=== PATIENT | male | born 2000 | race Caucasian/White ===

== ENCOUNTER 2023-09-29 11:31 | Emergency (ER) | payer SELFPAY ==
[~2023-09-29] VITALS: Ht 188 cm; Wt 129.5 kg
[2023-09-29 11:49] VITALS: BP 168/95; TEMP 98.4
[2023-09-29 14:26] VITALS: PULSE 86
== END 2023-09-29 14:26 | disposition home or self-care (01) ==
LOC: COL.ER 11:31
DX: S01.01XA Laceration without foreign body of scalp, initial encounter (principal); S20.212A Contusion of left front wall of thorax, initial encounter; Z23 Encounter for immunization; W01.10XA Fall on same level from slipping, tripping and stumbling with subsequent striking against unspecified object, initial encounter; Y99.0 Civilian activity done for income or pay

== ENCOUNTER 2024-06-18 14:00 | Emergency (ER) | payer SELFPAY ==
[~2024-06-18] VITALS: Ht 188 cm; Wt 136.4 kg
[2024-06-18 14:05] VITALS: TEMP 98.2
[2024-06-18] MEDS ORDERED: fentaNYL 50 MCG/ML 2 ML VIAL IV ONE (14:15)
[2024-06-18 14:23] LABS: BASO % 0.4 % (0.0-2.0); EOS % 0.6 % (0.0-4.0); GRAN # 4.1 K/mm3 (1.4-6.5); GRAN % 60.8 % (42.2-75.2); HEMATOCRIT 45.6 % (42.0-52.0); HEMOGLOBIN 15.8 g/dl (13.5-18.0); LYMPH # 2.1 K/mm3 (1.2-3.4); LYMPH % 31.4 % (20.0-51.0); MEAN CELL VOLUME 87 fl (80.0-100.0); MEAN CORPUSCULAR HEMOGLOBIN 30 pg (27-31); MEAN CORPUSCULAR HGB CONC 35 g/dl (33.0-37.0); MEAN PLATELET VOLUME 10.7 fl (7.4-10.4); MONO # 0.4 K/mm3 (0.1-0.6); MONO % 6.1 % (1.7-9.3); PLATELET COUNT 202 K/mm3 (130-400); RED BLOOD COUNT 5.23 M/mm3 (4.20-5.60); REDCELL DISTRIBUTION WIDTH-CV 12.5 % (11.5-14.5)
[2024-06-18 14:39] LABS: ALBUMIN 4.1 g/dL (3.5-5.0); BILIRUBIN,TOTAL 0.7 mg/dL (0.2-1.2); CALCIUM 9.4 mg/dL (8.4-10.2); CREATININE, serum 0.95 mg/dL (0.72-1.25); POTASSIUM 4.5 mEq/L (3.5-4.5); TOTAL PROTEIN 7.7 g/dl (6.2-8.1)
[2024-06-18] MEDS ORDERED: NS 100 ML IV SCH (14:56)
[2024-06-18] MEDS ORDERED: Iohexol 300 - 100 ML VIAL IV ONE (14:56)
[2024-06-18] MEDS ORDERED: Morphine 4 MG/ML VIAL IV ONE (15:30)
[2024-06-18] MEDS ORDERED: PERCOCET 325 MG1 TA2 PO (17:10)
[2024-06-18] MEDS ORDERED: Home oxyCODONE/Acetaminophen 5/325 MG #4 TAB/PACK PO ONE (17:15)
[2024-06-18] MEDS ORDERED: Ondansetron 4 MG/2 ML VIAL IV ONE (17:30)
[2024-06-18 17:39] VITALS: BP 116/69; PULSE 94
[2024-06-22] MEDS ORDERED: PERCOCET 325 MG1 TA2 PO (00:29)
== END 2024-06-18 17:45 | disposition home or self-care (01) ==
LOC: COL.ER 14:00
PROVIDERS: Nurse Practitioner
DX: S09.90XA Unspecified injury of head, initial encounter (principal); S63.502A Unspecified sprain of left wrist, initial encounter; S80.11XA Contusion of right lower leg, initial encounter; S50.311A Abrasion of right elbow, initial encounter; Q53.10 Unspecified undescended testicle, unilateral; V23.49XA Other motorcycle driver injured in collision with car, pick-up truck or van in traffic accident, initial encounter; Y93.55 Activity, bike riding; Y92.410 Unspecified street and highway as the place of occurrence of the external cause
CPT/HCPCS: J2270; J2405; J3010; Q9967

== ENCOUNTER → 2024-06-22 | Outpatient (CLI) | payer SELFPAY ==
[~2024-06-22] MED LIST: PERCOCET 325 MG1 TA2 PO
== END ==
LOC: COL.RAD 05:11
DX: N50.1 Vascular disorders of male genital organs (principal)

== ENCOUNTER → 2024-07-24 | Outpatient (CLI) | payer OTHER | LOC: COL.RAD 14:15 | DX: N50.82 Scrotal pain (principal) ==